=== PATIENT | female | born 1955 | race Caucasian/White ===

== ENCOUNTER 2020-04-30 22:13 | Observation (INO) | payer BC ==
[2020-04-30 23:03] LABS: Basophils % (A) 0 %; Eosinophils # (A) 0.1 k/uL (0-0.7); Eosinophils % (A) 1 %; HCT 43.1 % (34.0-46.0); HGB 13.6 gm/dL (11.4-16.0); Lymphocytes # (A) 2.7 k/uL (1.0-4.8); Lymphocytes % (A) 26 %; MCH 29.1 pg (25.0-35.0); MCHC 31.5 g/dL (31.0-37.0); MCV 92.4 fL (80.0-100.0); Mean Platelet Volume 8.2; Monocytes # (A) 0.6 k/uL (0-1.0); Monocytes % (A) 6 %; Neutrophils # (A) 6.6 k/uL (1.3-7.7); Neutrophils % (A) 64 %; Platelet Count 235 k/uL (150-450); RBC 4.66 m/uL (3.80-5.40); RDW 13.4 % (11.5-15.5); WBC 10.2 k/uL (3.8-10.6)
[2020-04-30 23:12] LABS: Albumin 4.5 g/dL (3.5-5.0); Calcium 9.7 mg/dL (8.4-10.2); Potassium 4.4 mmol/L (3.5-5.1); Total Bilirubin 0.5 mg/dL (0.2-1.3); Total Protein 7.4 g/dL (6.3-8.2)
[2020-04-30 23:16] LABS: D-Dimer 0.24 mg/L FEU (<0.60); Partial Thromboplastin Time 26.5 sec (22.0-30.0); Prothrombin Time 10.4 sec (9.0-12.0)
--- NOTE | 2020-04-30 23:30 | XR ---
EXAMINATION TYPE: XR chest 2V DATE OF EXAM: 04/30/2020 COMPARISON: NONE HISTORY: Chest pain TECHNIQUE: 2 views FINDINGS: Heart and mediastinum are normal. Lungs are clear. Diaphragm is normal. Bony thorax appears normal. IMPRESSION: Normal chest. Normal heart.
[2020-04-30] MEDS ORDERED: HEPARIN SODIUM,PORCINE 5,000 UNIT/ML 1 ML VIAL IV PRN (23:38)
[2020-04-30] MEDS ORDERED: HEPARIN SODIUM,PORCINE 5,000 UNIT/ML 1 ML VIAL IV ONE (23:38)
[2020-04-30] MEDS ORDERED: DILTIAZEM DRIP BOLUS FROM BAG 1 MG SOLN IV ONE (23:38)
[2020-04-30] MEDS ORDERED: HEPARIN SOD,PORK IN 0.45% NACL 25,000 UNIT in 0.45% NACL 1 250ML.BAG IV SCH (23:45)
[2020-04-30] MEDS ORDERED: DILTIAZEM 125 MG in SODIUM CHLORIDE 0.9% 100 ML IV SCH (23:45)
[2020-04-30] MEDS ORDERED: ASPIRIN 81 MG PO STA (23:46)
[2020-04-30] MEDS ORDERED: NITROGLYCERIN SL TABS 0.4 MG TAB SUBLINGUAL PRN (23:46)
--- NOTE | 2020-04-30 23:46 | ED ---
General Adult HPI - General Chief complaint: Chest Pain Stated complaint: Chest Pain Source: patient Mode of arrival: wheelchair Limitations: no limitations - History of Present Illness Initial comments: Francesca 64-year-old female with a history of paroxysmal atrial fibrillation. Philip pelaez reports approximate 4 years ago she was hospitalized for bacterial meningitis and while in the ICU had episodes of atrial fibrillation, since that time she is followed annually with a inbound customer service agent and had no further complications. Patient reports that this evening she been experiencing palpi tations and some chest pressure which proctored from the ER for further evaluation. Patient states that she feels like her heart is racing and it feels tight. - Related Data Allergies Allergy/AdvReac Type Severity Reaction Status Date / Time clindamycin Allergy Nausea & Verified 04/30/20 22:20 Vomiting sulfamethoxazole Allergy Nausea & Verified 04/30/20 22:20 [From Bactrim] Vomiting trimethoprim [From Bactrim] Allergy Nausea & Verified 04/30/20 22:20 Vomiting Review of Systems ROS Statement: Those systems with pertinent positive or pertinent negative responses have been documented in the HPI. ROS Other: All systems not noted in ROS Statement are negative. Past Medical History Past Medical History: Hypertension Additional Past Medical History / Comment(s): bacterial mengitis History of Any Multi-Drug Resistant Organisms: None Reported Additional Past Surgical History / Comment(s): breast biopsy, cervical neck disc removal. Past Psychological History: No Psychological Hx Reported Smoking Status: Never smoker Past Alcohol Use History: None Reported Past Drug Use History: None Reported General Exam - General Exam Comments Initial Comments: Physical Exam GENERAL: Patient is well-developed and well-nourished. Patient is nontoxic and well- hydrated and is in no distress. HENT: Normocephalic, Atraumatic. EYES: PERRL, EOMI PULMONARY: Unlabored respirations. No audible rales rhonchi or wheezing was noted. CARDIOVASCULAR: Irregularly irregular, tachycardic, no M/R/G ABDOMEN: Soft and nontender with normal bowel sounds. SKIN: Skin is clear with no lesions or rashes and otherwise unremarkable. : Deferred NEUROLOGIC: Patient is alert and oriented x3. Moving all extremities spontaneously MUSCULOSKELETAL: Normal extremities with adequate strength and full range of motion. No lower extremity swelling or edema. No calf tenderness. PSYCHIATRIC: Normal psychiatric evaluation. Limitations: no limitations Course Vital Signs 04/30/20 04/30/20 22:15 23:00 Temperature 97.3 F L Pulse Rate 133 H 133 H Respiratory 18 18 Rate Blood Pressure 160/72 128/104 O2 Sat by Pulse 97 Oximetry EKG Findings - EKG Comments: EKG Findings:: Initial EKG was obtained at 2233, EKG with a rate of 127 rhythm is a narrow complex irregular tachycardia they do appear to be P waves before each QRS, but prolonged MD 216. This is sinus tachycardia with sinus arrhythmia. EKG was obtained due to a change in rhythm on the test engine mechanic. Repeat EKG obtained at 2334, rate is 125 rhythm is a narrow complex irregularly irregular tachycardia with no discernible T waves consistent with an atrial fibrillation or atrial flutter with a 2-1 block. There are some ST depressions laterally consistent with some ischemia but no infarction. Medical Decision Making - Medical Decision Making Patient was seen and evaluated history is obtained from patient during my evaluation it was noted the patient appeared to be in A. fib with RVR and the monitor and repeat EKG was obtained. Patient does appear to be in A. fib or a flutter with RVR. Anticoagulation and Cardizem was ordered. Labs are unremarkable, troponin is not elevated She will be admitted to telemetry for further monitoring and evaluation by cardiology - Lab Data Result diagrams: 04/30/20 22:46 04/30/20 22:46 Lab Results 04/30/20 04/30/20 04/30/20 Range/Units 22:46 22:46 22:46 WBC 10.2 (3.8-10.6) k/uL RBC 4.66 (3.80-5.40) m/uL Hgb 13.6 (11.4-16.0) gm/dL Hct 43.1 (34.0-46.0) % MCV 92.4 (80.0-100.0) fL MCH 29.1 (25.0-35.0) pg MCHC 31.5 (31.0-37.0) g/dL RDW 13.4 (11.5-15.5) % Plt Count 235 (150-450) k/uL Neutrophils % 64 % Lymphocytes % 26 % Monocytes % 6 % Eosinophils % 1 % Basophils % 0 % Neutrophils # 6.6 (1.3-7.7) k/uL Lymphocytes # 2.7 (1.0-4.8) k/uL Monocytes # 0.6 (0-1.0) k/uL Eosinophils # 0.1 (0-0.7) k/uL Basophils # 0.0 (0-0.2) k/uL PT 10.4 (9.0-12.0) sec INR 1.0 (<1.2) APTT 26.5 (22.0-30.0) sec D-Dimer 0.24 (<0.60) mg/L FEU Sodium 138 (137-145) mmol/L Potassium 4.4 (3.5-5.1) mmol/L Chloride 104 (98-107) mmol/L Carbon Dioxide 26 (22-30) mmol/L Anion Gap 8 mmol/L BUN 19 H (7-17) mg/dL Creatinine 0.91 (0.52-1.04) mg/dL Est GFR (CKD-EPI)AfAm 78 (>60 ml/min/1.73 sqM) Est GFR (CKD-EPI)NonAf 67 (>60 ml/min/1.73 sqM) Glucose 115 H (74-99) mg/dL Calcium 9.7 (8.4-10.2) mg/dL Magnesium 2.0 (1.6-2.3) mg/dL Total Bilirubin 0.5 (0.2-1.3) mg/dL AST 25 (14-36) U/L ALT 18 (4-34) U/L Alkaline Phosphatase 100 (38-126) U/L Creatine Kinase 49 (30-135) U/L Troponin I (0.000-0.034) ng/mL Total Protein 7.4 (6.3-8.2) g/dL Albumin 4.5 (3.5-5.0) g/dL 04/30/20 Range/Units 22:46 WBC (3.8-10.6) k/uL RBC (3.80-5.40) m/uL Hgb (11.4-16.0) gm/dL Hct (34.0-46.0) % MCV (80.0-100.0) fL MCH (25.0-35.0) pg MCHC (31.0-37.0) g/dL RDW (11.5-15.5) % Plt Count (150-450) k/uL Neutrophils % % Lymphocytes % % Monocytes % % Eosinophils % % Basophils % % Neutrophils # (1.3-7.7) k/uL Lymphocytes # (1.0-4.8) k/uL Monocytes # (0-1.0) k/uL Eosinophils # (0-0.7) k/uL Basophils # (0-0.2) k/uL PT (9.0-12.0) sec INR (<1.2) APTT (22.0-30.0) sec D-Dimer (<0.60) mg/L FEU Sodium (137-145) mmol/L Potassium (3.5-5.1) mmol/L Chloride (98-107) mmol/L Carbon Dioxide (22-30) mmol/L Anion Gap mmol/L BUN (7-17) mg/dL Creatinine (0.52-1.04) mg/dL Est GFR (CKD-EPI)AfAm (>60 ml/min/1.73 sqM) Est GFR (CKD-EPI)NonAf (>60 ml/min/1.73 sqM) Glucose (74-99) mg/dL Calcium (8.4-10.2) mg/dL Magnesium (1.6-2.3) mg/dL Total Bilirubin (0.2-1.3) mg/dL AST (14-36) U/L ALT (4-34) U/L Alkaline Phosphatase (38-126) U/L Creatine Kinase (30-135) U/L Troponin I <0.012 (0.000-0.034) ng/mL Total Protein (6.3-8.2) g/dL Albumin (3.5-5.0) g/dL Disposition Clinical Impression: Atrial fibrillation with RVR Disposition: ADMITTED IP TO THIS HOSP Condition: Stable Is patient prescribed a controlled substance at d/c from ED?: No Referrals: Radha Villagomez MD [Primary Care Provider] - 1-2 days
--- NOTE | 2020-05-01 01:14 | P.HPIM ---
History of Present Illness H&P Date: 05/01/20 The patient is a 61-year-old female with no known PMH who presented to the ED with complaints of sudden onset of palpitations and chest discomfort. The patient notes that she was in her usual state of health until about 10 PM when she suddenly developed her symptoms, while laying in her bed trying to sleep. She reports that the discomfort was substernal, 4 out of 10, intermittent, nonradiating, occurring with the palpitations, with no other associated symptoms. In the ED, the patient was noted to be in A. fib with RVR at 127 bpm. The patient however spontaneously converted back into sinus rhythm at time of interview, and reported no further chest discomfort. Patient notes that she has previously had occasional palpitations intermittently over the past few years, though never had associated chest discomfort and thereby didn't seek medical attention. The patient's chest x-ray was unremarkable, with laboratory evaluation showing WBC count 10.2, hemoglobin 13.6, platelets 235, sodium 138, potassium 4.4, chloride 104, BUN 19, creatinine 0.91, glucose 115,, troponin less than 0.012, d-dimer 0.04. The patient was started on heparin infusion and is being admitted to the medicine service for further management of newly diagnosed A. fib. Review of Systems Pertinent positives and negatives as discussed in HPI, a complete review of systems was performed and all other systems are negative. Past Medical History Past Medical History: Hypertension Additional Past Medical History / Comment(s): bacterial mengitis History of Any Multi-Drug Resistant Organisms: None Reported Additional Past Surgical History / Comment(s): breast biopsy, cervical neck disc removal. Past Anesthesia/Blood Transfusion Reactions: No Reported Reaction Past Psychological History: No Psychological Hx Reported Smoking Status: Never smoker Past Alcohol Use History: None Reported Past Drug Use History: None Reported Medications and Allergies Allergies Allergy/AdvReac Type Severity Reaction Status Date / Time clindamycin Allergy Nausea & Verified 04/30/20 22:20 Vomiting sulfamethoxazole Allergy Nausea & Verified 04/30/20 22:20 [From Bactrim] Vomiting trimethoprim [From Bactrim] Allergy Nausea & Verified 04/30/20 22:20 Vomiting Physical Exam Vitals: Vital Signs Temp Pulse Resp BP Pulse Ox 04/30/20 23:00 133 H 18 128/104 97 04/30/20 22:15 97.3 F L 133 H 18 160/72 Intake and Output 04/30/20 04/30/20 05/01/20 14:59 22:59 06:59 Other: Weight 106.141 kg 106.141 kg General: non toxic, no distress, appears at stated age, obese Derm: no unusual rashes/lesions no unusual ecchymoses, warm, dry Head: atraumatic, normocephalic, symmetric Eyes: EOMI, no lid lag, anicteric sclera, pupils equal round reactive to light ENT: Nose and ears atraumatic, no thrush, no pharyngeal erythema Neck: No thyromegaly, no cervical lymphadenopathy, trachea midline, supple Mouth: no lip lesion, mucus membranes moist Cardiovascular: S1S2 reg, no murmur, positive posterior tibial pulse bilateral, no edema, capillary refill less than 2 seconds Lungs: CTA bilateral, no rhonchi, no rales , no accessory muscle use Abdominal: soft, nontender to palpation, no guarding, no appreciable organomegaly, normal bowel sounds Ext: no gross muscle atrophy, muscle strength 5 out of 5 in all 4 extremities grossly, no contractures, Neuro: CN II-XI grossly intact, light touch intact all 4 extremities, finger to nose within normal limits, Psych: Alert, oriented, appropriate affect Results CBC & Chem 7: 04/30/20 22:46 04/30/20 22:46 Labs: Abnormal Lab Results - Last 24 Hours (Table) 04/30/20 Range/Units 22:46 BUN 19 H (7-17) mg/dL Glucose 115 H (74-99) mg/dL Thrombosis Risk Factor Assmnt - Choose All That Apply Each Risk Factor Represents 2 Points: Age 61-74 years Thrombosis Risk Factor Assessment Total Risk Factor Score: 2 Thrombosis Risk Factor Assessment Level: Low Risk Assessment and Plan Plan: Newly diagnosed paroxysmal atrial fibrillation -Echocardiogram -Cardiology consult -Start Lopressor 25 mg twice a day -Heparin infusion -Cardiac monitoring Elevated BUN, prerenal azotemia -Monitor BMP DVT prophylaxis -Heparin infusion The patient is admitted with an anticipated less than 2 midnight stay for evaluation of afib CODE STATUS: Full Code Discussed with: Patient Anticipated discharge date: 1-[address]: Home A total of 35 minutes was spent on the care of this complex patient more than 50% of the time was spent in counseling and care coordination.
[2020-05-01] MEDS ORDERED: METOPROLOL TARTRATE 25 MG TAB PO SCH (01:15)
[2020-05-01] MEDS: METOPROLOL TARTRATE 12.5 MG TAB PO SCH ×2 (01:58→09:10)
[2020-05-01 06:20] LABS: Basophils % (A) 0 %; Eosinophils # (A) 0.1 k/uL (0-0.7); Eosinophils % (A) 1 %; HCT 38.3 % (34.0-46.0); HGB 12.6 gm/dL (11.4-16.0); Lymphocytes # (A) 2.6 k/uL (1.0-4.8); Lymphocytes % (A) 34 %; MCH 30.7 pg (25.0-35.0); MCHC 32.9 g/dL (31.0-37.0); MCV 93.2 fL (80.0-100.0); Mean Platelet Volume 8.4; Monocytes # (A) 0.4 k/uL (0-1.0); Monocytes % (A) 5 %; Neutrophils # (A) 4.4 k/uL (1.3-7.7); Neutrophils % (A) 58 %; Platelet Count 237 k/uL (150-450); RBC 4.11 m/uL (3.80-5.40); RDW 13.3 % (11.5-15.5); WBC 7.6 k/uL (3.8-10.6)
[2020-05-01 06:43] LABS: Cholesterol 178 mg/dL (<200); HDL Cholesterol 42 mg/dL (40-60); LDL Cholesterol,Calculated 108 mg/dL (0-99); Triglycerides 139 mg/dL (<150)
[2020-05-01] MEDS ORDERED: ASPIRIN 325 MG TAB PO SCH (09:00)
[2020-05-01 09:04] VITALS: RESP 18
[2020-05-01] MEDS ORDERED: APIXABAN 5 MG TAB PO SCH (12:00)
[2020-05-01] MEDS ORDERED: CARVEDILOL 6.25 MG TAB PO SCH (12:00)
--- NOTE | 2020-05-01 12:22 | PN ---
PROGRESS NOTE Mrs. Claudio is a 64-year-old female who is followed by Dr. Villagomez and she sees Dr. Espinoza, finish mender at [facility], who presented with symptoms of palpitation. According to her, 4 years ago, she had an episode of paroxysmal atrial fibrillation following extubation following bacterial meningitis. Since that time, she has a rare episode about once a year, although this year she had 1 in the winter and had an episode yesterday that occurred at rest. Persisted and so she came into the emergency room. She had no associated chest discomfort or significant dyspnea. She has no dizziness or palpitation. She is average in exercise tolerance, has no exertional chest pain. She has no syncope. No PND, orthopnea, or peripheral edema. Her coronary risk factors are remarkable for hypertension. She is a nonsmoker, nondiabetic. MEDICATIONS: At home include: Enalapril 2.5 mg twice a day, carvedilol 6.25 mg twice a day, and aspirin once a day. REVIEW OF SYSTEMS: Respiratory system: She has no recent wheezing. No cough. No documented obstructive lung disease. GI system: No recent GI bleeding. No peptic ulcer disease. system: No dysuria or hematuria. NERVOUS SYSTEM: No stroke or seizure. PHYSICAL EXAMINATION: 64-year-old female, obese. Blood pressure 127/80 with a heart rate in the 60s. HEAD: Normocephalic. EYES: Sclerae nonicteric. NECK: Good upstroke. No bruit. No jugular venous distention. LUNGS: Clear to auscultation. HEART: Regular rate and rhythm, S1, S2. No S3. No S4. No rub. ABDOMEN: Soft, obese, nontender. No organomegaly. EXTREMITIES: No edema. Intact distal pulses. LAB DATA: Revealed troponin less than 0.012, BUN and creatinine 19 and 0.91, hemoglobin of 12.6. Initial EKG revealed atrial fibrillation, rate [address]-T wave changes. She is back in sinus mechanism at this time. Her chest x-ray shows no acute infiltrate. FINAL IMPRESSION: 1. Paroxysmal atrial fibrillation has been documented in the past. Her CHADS Vasc 2 score is 2. 2. History of hypertension. 3. Borderline hyperlipidemia. RECOMMENDATIONS: I have discussed with the patient the risk of thromboembolic phenomena and in view of her score, I have recommend to initiate anticoagulation. She is in agreement to that. I will review the results of her echocardiogram. If stable, she should be able to be discharged home today and follow up with her primary finish mender soon. Thank you for this consult. We will follow with you. EDWINA / TY: [id number] /
--- NOTE | 2020-05-01 12:42 | P.DS ---
Providers Date of admission: 04/30/20 23:46 Expected date of discharge: 05/01/20 Attending physician: Keshawn Herrera MD Consults: 04/30/20 23:46 Consult Physician Urgent Consulting Provider: [facility] Consult Reason/Comments: new afib/flutter with RVR Do you want consulting provider notified?: Yes, Notify in am [facility] Course: The patient is a 61-year-old female with no known PMH who presented to the ED with complaints of sudden onset of palpitations and chest discomfort. The patient notes that she was in her usual state of health until about 10 PM when she suddenly developed her symptoms, while laying in her bed trying to sleep. She reports that the discomfort was substernal, 4 out of 10, intermittent, nonradiating, occurring with the palpitations, with no other associated symptoms. In the ED, the patient was noted to be in A. fib with RVR at 127 bpm. The patient however spontaneously converted back into sinus rhythm at time of interview, and reported no further chest discomfort. Patient notes that she has previously had occasional palpitations intermittently over the past few years, though never had associated chest discomfort and thereby didn't seek medical attention. The patient's chest x-ray was unremarkable, with laboratory evaluation showing WBC count 10.2, hemoglobin 13.6, platelets 235, sodium 138, potassium 4.4, chloride 104, BUN 19, creatinine 0.91, glucose 115,, troponin less than 0.012, d-dimer 0.04. The patient was started on heparin infusion and is being admitted to the medicine service for further management of newly diagnosed A. fib. Patient was placed on observation was seen and evaluated by cardiology. Echocardiogram reviewed by cardiology. Risk and benefits of anticoagulation discussed with cardiology and patient was agreeable to start clear liquids twice daily. She will follow-up with her feed crusher operator in the office. Patient will be discharged home in a stable condition. For further details about this hospitalization please refer to the electronic chart. Patient Condition at Discharge: Stable Plan - Discharge Summary Discharge Rx Participant: Yes New Discharge Prescriptions: New Apixaban [Eliquis] 5 mg PO BID #60 tab Continue Enalapril Maleate [Vasotec] 5 mg PO BID Carvedilol [Coreg] 6.25 mg PO BID Magnesium Oxide 400 mg PO DAILY Fish Oil/Dha/Epa [Fish Oil 1,200 mg Fish Oil] 1 each PO DAILY Cholecalciferol [Vitamin D3 (25 Mcg = 1000 Iu)] 1,000 unit PO DAILY Discontinued Aspirin [Adult Low Dose Aspirin EC] 81 mg PO DAILY Discharge Medication List Apixaban [Eliquis] 5 mg PO BID #60 tab 05/01/20 [Rx] Carvedilol [Coreg] 6.25 mg PO BID 05/01/20 [History] Cholecalciferol [Vitamin D3 (25 Mcg = 1000 Iu)] 1,000 unit PO DAILY 05/01/20 [History] Enalapril Maleate [Vasotec] 5 mg PO BID 05/01/20 [History] Fish Oil/Dha/Epa [Fish Oil 1,200 mg Fish Oil] 1 each PO DAILY 05/01/20 [History] Magnesium Oxide 400 mg PO DAILY 05/01/20 [History] Follow up Appointment(s)/Referral(s): Radha Villagomez MD [Primary Care Provider] - 1-2 days Discharge Disposition: HOME SELF-CARE
[2020-05-01 13:08] VITALS: BP 118/55; PULSE 54; TEMP 98.3
--- NOTE | 2020-05-01 14:57 | ECHOF ---
Referral Reason:new Afib MEASUREMENTS -------- HEIGHT: 167.6 cm WEIGHT: 103.4 kg BP: 106/64 IVSd: 1.3 cm (0.6 - 1.1) LVIDd: 3.9 cm (3.9 - 5.3) LVPWd: 1.2 cm (0.6 - 1.1) IVSs: 1.5 cm LVIDs: 2.2 cm LVPWs: 1.7 cm RVIDd: 3.9 cm (< 3.3) LAESV Index (A-L): 29.69 ml/m Ao Diam: 2.7 cm (2.0 - 3.7) AV Cusp: 2.1 cm (1.5 - 2.6) EPSS: 0.3 cm MV E Rik: 1.13 m/s MV DecT: 194 ms MV A Rik: 0.85 m/s MV E/A Ratio: 1.32 RAP: 5.00 mmHg RVSP: 28.38 mmHg MV EF SLOPE: 79.29 mm/s (70 - 150) MV EXCURSION: 14.58 mm (> 18.000) FINDINGS -------- Sinus rhythm. This was a technically adequate study. The left ventricular size is normal. There is mild concentric left ventricular hypertrophy. Overa ll left ventricular systolic function is normal with, an EF between 55 - 60 %. The diastolic fillin g pattern is normal for the age of the patient 16.73. The right ventricle is mild to moderately enlarged. Normal LA size by volume 22+/-6 ml/m2. The right atrial size is normal. Interatrial and interventricular septum intact. The aortic valve is trileaflet, and appears structurally normal. No aortic stenosis or regurgitation. The mitral valve is normal. There is trace mitral regurgitation. The tricuspid valve appears structurally normal. Mild tricuspid regurgitation present. There is n o evidence of pulmonary hypertension. The right ventricular systolic pressure, as measured by Doppl er, is 28.38mmHg. There is no pulmonic regurgitation present. The aortic root size is normal. IVC Not well visulized. There is no pericardial effusion. CONCLUSIONS -------- 1. Sinus rhythm. 2. There is mild concentric left ventricular hypertrophy. 3. Overall left ventricular systolic function is normal with, an EF between 55 - 60 %. 4. The diastolic filling pattern is normal for the age of the patient 16.73 5. The right ventricle is mild to moderately enlarged. 6. Normal LA size by volume 22+/-6 ml/m2. 7. The aortic valve is trileaflet, and appears structurally normal. No aortic stenosis or regurgitati on. 8. There is trace mitral regurgitation. 9. Mild tricuspid regurgitation present. 10. There is no pericardial effusion. STOCK TRACER: Linette Muro RDCS
[2020-05-02] MEDS ORDERED: LISINOPRIL 5 MG TAB PO SCH (09:00)
== END 2020-05-01 15:34 | disposition home or self-care (01) ==
LOC: EC 22:13 → INTOOBSV 23:46 → 3SCARD 23:46
PROVIDERS: ADMIT Internal Medicine; ATTEND Internal Medicine
DX: I48.0 Paroxysmal atrial fibrillation (principal); R94.4 Abnormal results of kidney function studies; R79.89 Other specified abnormal findings of blood chemistry; I34.0 Nonrheumatic mitral (valve) insufficiency; I10 Essential (primary) hypertension; E78.5 Hyperlipidemia, unspecified; E66.9 Obesity, unspecified; Z68.36 Body mass index [BMI] 36.0-36.9, adult; Z03.818 Encounter for observation for suspected exposure to other biological agents ruled out; Z86.61 Personal history of infections of the central nervous system; Z88.1 Allergy status to other antibiotic agents; Z88.2 Allergy status to sulfonamides; Z98.890 Other specified postprocedural states; Z87.39 Personal history of other diseases of the musculoskeletal system and connective tissue; Z79.899 Other long term (current) drug therapy; Z79.82 Long term (current) use of aspirin
CPT/HCPCS: 96376; 96365; 96366; 93005 ×2; 99285; 36415; 93306; 85379; 80061; 80053; 84443; 82550; 83735; 84484 ×2; 85025 ×2; 85610; 85730 ×2; 71046; G0378; U0003; J1644 ×2